=== PATIENT | male | born 1970 | race Caucasian/White ===

== ENCOUNTER 2021-05-18 11:20 | Day surgery (SDC) | payer BC ==
[2021-05-18] MEDS ORDERED: LIDOCAINE HCL 2% 100 MG/5 ML IJ ONE (11:21)
[2021-05-18] MEDS ORDERED: Decadron 4 MG INJ IV ONE (11:21)
[2021-05-18] MEDS ORDERED: DIPRIVAN 200 MG/20 ML IV ONE (12:04)
[2021-05-18] MEDS ORDERED: Lactated Ringers 1,000 ML IV ONE (16:13)
--- NOTE | 2021-05-19 11:20 | XRAY ---
28 seconds fluoroscopy time in surgery for left C2-C4 MBB.
--- NOTE | 2021-05-21 22:46 | XRAY ---
Indication: Left C2-C4 MBB. Intraoperative fluoroscopy was provided for 28 seconds. 2 digital spot images submitted for interpretation demonstrate posterior needle tips projected over the expected left C2-C4 nerve roots. Correlate with intraoperative findings/report.
== END 2021-05-18 12:32 | disposition home or self-care (01) ==
LOC: SDC-PAIN 11:20
PROVIDERS: ATTEND Psychiatry & Neurology Pain Medicine
DX: M47.812 Spondylosis without myelopathy or radiculopathy, cervical region (principal); Z79.899 Other long term (current) drug therapy
CPT/HCPCS: 64490; 64491; 72040; 77002; J1100; J2704

== ENCOUNTER 2021-08-04 15:13 | Emergency (ER) | payer BC ==
[2021-08-04] MEDS ORDERED: Sodium Chloride 0.9% 1000 ML 1,000 ML IV STA ×2 (15:38→17:18)
--- NOTE | 2021-08-04 15:38 | ERPHSYRPT ---
- History of Present Illness Time Seen by Provider: 08/04/21 15:35 Source: patient Patient Subjective Stated Complaint: PT TO ER WITH COMPLAINTS OF HEADACHE/BODY ACHES AND CHILLS X 2 DAYS. PT STATES HE WAS CONCERNED BECAUSE THIS IS HOW HE FELT WHEN HE HAD COVID A YEAR AGO. PT COMPLAINS OF FATIGUE. Triage Nursing Assessment: PT A&OX4. AMBULATORY. SKIN PWD. NO DISTRESS. Physician History: This is a 51-year-old white male who has a history of hypertension, peptic ulcer disease and gastroesophageal reflux disease as well as arthritis and presents with 2-day history of initial chills followed by cough, body aches and headaches. Patient had COVID-19 infection approximately 1 year ago. Mid June 2021 the patient had a booster Covid vaccine dose. Patient denies shortness of breath. He denies chest pain. He has had no nausea vomiting or diarrhea. He has no abdominal pain. Timing/Duration: day(s) (2) Cough Quality/Degree: mild Possible Cause: no prior episodes Modifying Factors: Improves With: coughing Associated Symptoms: chills, cough, muscle aches, sore throat, No shortness of breath Allergies/Adverse Reactions: Penicillins Allergy (Mild, Verified 08/04/21 15:29) Hives Home Medications: Carvedilol 6.25 mg [Coreg 6.25 MG] 1 tab PO DAILY 08/04/21 [History] Diltiazem HCl [Diltiazem 12Hr ER] 1 tab PO DAILY 08/04/21 [History] Omeprazole 40 mg PO BID 08/04/21 [History] Hx Tetanus, Diphtheria Vaccination/Date Given: No Hx Influenza Vaccination/Date Given: No Hx Pneumococcal Vaccination/Date Given: No Immunizations Up to Date: Yes Travel Risk - International Travel Have you traveled outside of the country in past 3 weeks: No - Coronavirus Screening Are you exhibiting any of the following symptoms?: Yes Symptoms: Headaches/Body Aches/Fatigue Close contact with a COVID-19 positive Pt in past 14-21 Days: Yes - Vaccine Status Have you recieved a Covid-19 vaccination: Yes 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 - Vaccination Dates Date of 2cond Vaccination (if applicable): 07/12/2021 - Review of Systems Constitutional: Chills Eyes: No Symptoms Ears, Nose, & Throat: Throat Pain Respiratory: Cough Cardiac: No Symptoms Abdominal/Gastrointestinal: No Symptoms Genitourinary Symptoms: Frequency Musculoskeletal: Arthralgias, Myalgias Skin: No Symptoms Neurological: Headache Psychological: No Symptoms Endocrine: No Symptoms Hematologic/Lymphatic: No Symptoms Immunological/Allergic: No Symptoms All Other Systems: Reviewed and Negative - Past Medical History Pertinent Past Medical History: Yes Cardiac History: Hypertension Musculoskeletal History: Arthritis GI Medical History: Ulcer - Past Surgical History Past Surgical History: Yes Gastrointestinal: Appendectomy - Social History Smoking Status: Never smoker Exposure to second hand smoke: No Drug Use: none Patient Lives Alone: No - Nursing Vital Signs Nursing Vital Signs: Initial Vital Signs Temperature 99.5 F 08/04/21 15:21 Pulse Rate 124 H 08/04/21 15:21 Respiratory Rate 18 08/04/21 15:21 Blood Pressure 154/92 08/04/21 15:21 O2 Sat by Pulse Oximetry 95 08/04/21 15:21 Pain Scale Pain Intensity 6 - Physical Exam General Appearance: no apparent distress, alert, anxiety Eye Exam: PERRL/EOMI, eyes nml inspection Ears, Nose, Throat Exam: normal ENT inspection, moist mucous membranes Neck Exam: normal inspection, non-tender, supple, full range of motion Respiratory Exam: normal breath sounds, chest tenderness, lungs clear, respiratory distress, airway intact Cardiovascular Exam: tachycardia Gastrointestinal/Abdomen Exam: soft, normal bowel sounds, No tenderness Rectal Exam: not done Back Exam: normal inspection, normal range of motion, vertebral tenderness, No CVA tenderness Extremity Exam: normal inspection, normal range of motion, pelvis stable Neurologic Exam: alert, oriented x 3, cooperative, oncology rep specialist II-XII nml as tested, normal mood/affect, nml cerebellar function, nml station & gait, sensation nml Skin Exam: normal color, warm, dry Lymphatic Exam: No adenopathy SpO2 Interpretation: normal SpO2: 95 O2 Delivery: Room Air - Course Nursing assessment & vital signs reviewed: Yes EKG Interpreted by Me: RATE (120), Sinus Tach, NORMAL AXIS, NORMAL INTERVALS, NORMAL QRS, NORMAL ST-T, Other (No acute ischemic changes on today's EKG. When compared to EKG dated 03/25/2017, the new finding is sinus tachycardia.) Ordered Tests: Active Orders 24 hr Category Date Time Status Locket Maker STAT Care 08/04/21 15:39 Active EKG-ER Only STAT Care 08/04/21 15:38 Active IV Insertion STAT Care 08/04/21 15:38 Active Isolation, Initiate & Maintain STAT Care 08/04/21 15:38 Active Pulse Oximetry (ED) STAT Care 08/04/21 15:38 Active CHEST 1 VIEW (PORTABLE) Stat Exams 08/04/21 15:39 Completed CHEST WITH CONTRAST [CT] Stat Exams 08/04/21 17:09 Taken BLOOD CULTURE Stat Lab 08/04/21 15:56 Received CBC W DIFF Stat Lab 08/04/21 15:56 Completed CMP Stat Lab 08/04/21 15:56 Completed CULTURE,URINE Stat Lab 08/04/21 16:09 Received D-DIMER QUANTITATIVE Stat Lab 08/04/21 15:56 Completed Ferritin Stat Lab 08/04/21 15:56 Completed INFLUENZA A+B PORFIRIO Stat Lab 08/04/21 16:10 Completed LDH-LACTATE DEHYDROGENASE Stat Lab 08/04/21 15:56 Completed Lactic Acid Stat Lab 08/04/21 15:58 Completed [place] Screen Stat Lab 08/04/21 15:56 Completed TROPONIN Q3H Lab 08/04/21 15:56 Completed UA W/RFX UR CULTURE Stat Lab 08/04/21 16:09 Completed Medication Summary Discontinued Medications Generic Name Dose Route Start Last Admin Trade Name Freq PRN Reason Stop Dose Admin Hydrocodone Bitart/Acetaminophen 10 ml 08/04/21 15:50 08/04/21 16:00 Hydrocodone/Acetaminophen 5 Ml Udcup PO 08/04/21 15:51 10 ml STAT STA Administration Hydrocodone Bitart/Acetaminophen Confirm 08/04/21 15:59 Hydrocodone/Acetaminophen 5 Ml Udcup Administered 08/04/21 16:00 Dose 10 ml .ROUTE .STK-MED ONE Sodium Chloride 1,000 mls @ 999 mls/hr 08/04/21 15:38 08/04/21 16:56 Sodium Chloride 0.9% 1000 Ml IV 08/04/21 16:38 Infused .Q1H1M STA Infusion Sodium Chloride Confirm 08/04/21 15:45 Sodium Chloride 0.9% 1000 Ml Administered 08/04/21 15:46 Dose 1,000 mls @ ud .ROUTE .STK-MED ONE Levofloxacin/Dextrose 500 mg in 100 mls @ 100 mls/hr 08/04/21 17:08 08/04/21 18:21 Levofloxacin 500mg/100ml D5w IV 08/04/21 18:07 Infused STAT STA Infusion Sodium Chloride 1,000 mls @ 999 mls/hr 08/04/21 17:18 08/04/21 18:22 Sodium Chloride 0.9% 1000 Ml IV 08/04/21 18:18 Infused .Q1H1M STA Infusion Levofloxacin/Dextrose Confirm 08/04/21 17:17 Levofloxacin 500mg/100ml D5w Administered 08/04/21 17:18 Dose 500 mg in 100 mls @ ud IV .STK-Synchronic[employer].co ONE Sodium Chloride Confirm 08/04/21 17:19 Sodium Chloride 0.9% 1000 Ml Administered 08/04/21 17:20 Dose 1,000 mls @ ud .ROUTE .STK-MED ONE Lab/Rad Data: Laboratory Result Diagrams 08/04/21 15:56 08/04/21 15:56 Laboratory Results 08/04/21 08/04/21 08/04/21 Range/Units 16:10 16:10 16:09 WBC (4.0-10.5) K/mm3 RBC (4.1-5.6) M/mm3 Hgb (12.5-18.0) gm/dl Hct (42-50) % MCV (78-100) fl MCH (26-32) pg MCHC (32-36) g/dl RDW (11.5-14.0) % Plt Count (150-450) K/mm3 MPV (7.5-11.0) fl Gran % (36.0-66.0) % Eos # (Auto) (0-0.5) Absolute Lymphs (auto) (1.0-4.6) Absolute Monos (auto) (0.0-1.3) Lymphocytes % (24.0-44.0) % Monocytes % (0.0-12.0) % Eosinophils % (0.00-5.0) % Basophils % (0.0-0.4) % Absolute Granulocytes (1.4-6.9) Basophils # (0-0.4) D-Dimer (215-500) ng/mL Sodium (137-145) mmol/L Potassium (3.5-5.1) mmol/L Chloride (98-107) mmol/L Carbon Dioxide (22-30) mmol/L Anion Gap (5-15) MEQ/L BUN (9-20) mg/dL Creatinine (0.66-1.25) mg/dL Estimated GFR ML/MIN Glucose (74-106) mg/dL Lactic Acid (0.4-2.0) Calcium (8.4-10.2) mg/dL Ferritin (17.9-464) ng/mL Total Bilirubin (0.2-1.3) mg/dL AST (17-59) U/L ALT (0-50) U/L Alkaline Phosphatase (38-126) U/L Lactate Dehydrogenase (120-246) U/L Troponin I (0.000-0.034) ng/mL Serum Total Protein (6.3-8.2) g/dL Albumin (3.5-5.0) g/dL Urine Color YELLOW (YELLOW) Urine Appearance SLIGHTLY CLOUDY (CLEAR) Urine pH 6.0 (5-6) Ur Specific [place] 1.016 (1.005-1.025) Urine Protein 30 (Negative) Urine Ketones TRACE (NEGATIVE) Urine Blood MODERATE (0-5) Ky/ul Urine Nitrite POSITIVE (NEGATIVE) Urine Bilirubin NEGATIVE (NEGATIVE) Urine Urobilinogen 2 (0-1) mg/dL Ur Leukocyte Esterase MODERATE (NEGATIVE) Urine WBC (Auto) 11-15 (0-5) /HPF Urine RBC (Auto) NONE (0-2) /HPF U Epithel Cells (Auto) NONE (FEW) /HPF Urine Bacteria (Auto) MANY (NEGATIVE) /HPF Urine Mucus (Auto) SLIGHT (NEGATIVE) /HPF Urine Culture Reflexed YES (NO) Urine Glucose NEGATIVE (NEGATIVE) mg/dL Monoscreen (Negative) Influenza Type A Ag NEGATIVE (NEGATIVE) Influenza Type B Ag NEGATIVE (NEGATIVE) Group A Strep Antibody NOT DETECTED (NEGATIVE) Slides for Path Review 08/04/21 08/04/21 08/04/21 Range/Units 15:58 15:56 15:56 WBC (4.0-10.5) K/mm3 RBC (4.1-5.6) M/mm3 Hgb (12.5-18.0) gm/dl Hct (42-50) % MCV (78-100) fl MCH (26-32) pg MCHC (32-36) g/dl RDW (11.5-14.0) % Plt Count (150-450) K/mm3 MPV (7.5-11.0) fl Gran % (36.0-66.0) % Eos # (Auto) (0-0.5) Absolute Lymphs (auto) (1.0-4.6) Absolute Monos (auto) (0.0-1.3) Lymphocytes % (24.0-44.0) % Monocytes % (0.0-12.0) % Eosinophils % (0.00-5.0) % Basophils % (0.0-0.4) % Absolute Granulocytes (1.4-6.9) Basophils # (0-0.4) D-Dimer (215-500) ng/mL Sodium (137-145) mmol/L Potassium (3.5-5.1) mmol/L Chloride (98-107) mmol/L Carbon Dioxide (22-30) mmol/L Anion Gap (5-15) MEQ/L BUN (9-20) mg/dL Creatinine (0.66-1.25) mg/dL Estimated GFR ML/MIN Glucose (74-106) mg/dL Lactic Acid 1.3 (0.4-2.0) Calcium (8.4-10.2) mg/dL Ferritin 267 (17.9-464) ng/mL Total Bilirubin (0.2-1.3) mg/dL AST (17-59) U/L ALT (0-50) U/L Alkaline Phosphatase (38-126) U/L Lactate Dehydrogenase (120-246) U/L Troponin I (0.000-0.034) ng/mL Serum Total Protein (6.3-8.2) g/dL Albumin (3.5-5.0) g/dL Urine Color (YELLOW) Urine Appearance (CLEAR) Urine pH (5-6) Ur Specific [place] (1.005-1.025) Urine Protein (Negative) Urine Ketones (NEGATIVE) Urine Blood (0-5) Ky/ul Urine Nitrite (NEGATIVE) Urine Bilirubin (NEGATIVE) Urine Urobilinogen (0-1) mg/dL Ur Leukocyte Esterase (NEGATIVE) Urine WBC (Auto) (0-5) /HPF Urine RBC (Auto) (0-2) /HPF U Epithel Cells (Auto) (FEW) /HPF Urine Bacteria (Auto) (NEGATIVE) /HPF Urine Mucus (Auto) (NEGATIVE) /HPF Urine Culture Reflexed (NO) Urine Glucose (NEGATIVE) mg/dL Monoscreen NEGATIVE (Negative) Influenza Type A Ag (NEGATIVE) Influenza Type B Ag (NEGATIVE) Group A Strep Antibody (NEGATIVE) Slides for Path Review 08/04/21 08/04/21 08/04/21 Range/Units 15:56 15:56 15:56 WBC (4.0-10.5) K/mm3 RBC (4.1-5.6) M/mm3 Hgb (12.5-18.0) gm/dl Hct (42-50) % MCV (78-100) fl MCH (26-32) pg MCHC (32-36) g/dl RDW (11.5-14.0) % Plt Count (150-450) K/mm3 MPV (7.5-11.0) fl Gran % (36.0-66.0) % Eos # (Auto) (0-0.5) Absolute Lymphs (auto) (1.0-4.6) Absolute Monos (auto) (0.0-1.3) Lymphocytes % (24.0-44.0) % Monocytes % (0.0-12.0) % Eosinophils % (0.00-5.0) % Basophils % (0.0-0.4) % Absolute Granulocytes (1.4-6.9) Basophils # (0-0.4) D-Dimer 1710 H* (215-500) ng/mL Sodium 134 L (137-145) mmol/L Potassium 3.9 (3.5-5.1) mmol/L Chloride 101 (98-107) mmol/L Carbon Dioxide 24 (22-30) mmol/L Anion Gap 13.4 (5-15) MEQ/L BUN 14 (9-20) mg/dL Creatinine 0.95 (0.66-1.25) mg/dL Estimated GFR > 60.0 ML/MIN Glucose 113 H (74-106) mg/dL Lactic Acid (0.4-2.0) Calcium 9.9 (8.4-10.2) mg/dL Ferritin (17.9-464) ng/mL Total Bilirubin 0.90 (0.2-1.3) mg/dL AST 30 (17-59) U/L ALT 38 (0-50) U/L Alkaline Phosphatase 113 (38-126) U/L Lactate Dehydrogenase 158 (120-246) U/L Troponin I < 0.012 (0.000-0.034) ng/mL Serum Total Protein 6.3 (6.3-8.2) g/dL Albumin 3.8 (3.5-5.0) g/dL Urine Color (YELLOW) Urine Appearance (CLEAR) Urine pH (5-6) Ur Specific [place] (1.005-1.025) Urine Protein (Negative) Urine Ketones (NEGATIVE) Urine Blood (0-5) Ky/ul Urine Nitrite (NEGATIVE) Urine Bilirubin (NEGATIVE) Urine Urobilinogen (0-1) mg/dL Ur Leukocyte Esterase (NEGATIVE) Urine WBC (Auto) (0-5) /HPF Urine RBC (Auto) (0-2) /HPF U Epithel Cells (Auto) (FEW) /HPF Urine Bacteria (Auto) (NEGATIVE) /HPF Urine Mucus (Auto) (NEGATIVE) /HPF Urine Culture Reflexed (NO) Urine Glucose (NEGATIVE) mg/dL Monoscreen (Negative) Influenza Type A Ag (NEGATIVE) Influenza Type B Ag (NEGATIVE) Group A Strep Antibody (NEGATIVE) Slides for Path Review 08/04/21 Range/Units 15:56 WBC 9.9 (4.0-10.5) K/mm3 RBC 5.29 (4.1-5.6) M/mm3 Hgb 15.3 (12.5-18.0) gm/dl Hct 47.2 (42-50) % MCV 89.2 (78-100) fl MCH 28.9 (26-32) pg MCHC 32.4 (32-36) g/dl RDW 12.5 (11.5-14.0) % Plt Count 189 (150-450) K/mm3 MPV 9.9 (7.5-11.0) fl Gran % 71.5 H (36.0-66.0) % Eos # (Auto) 0.01 (0-0.5) Absolute Lymphs (auto) 1.25 (1.0-4.6) Absolute Monos (auto) 1.55 H (0.0-1.3) Lymphocytes % 12.6 L (24.0-44.0) % Monocytes % 15.6 H (0.0-12.0) % Eosinophils % 0.1 (0.00-5.0) % Basophils % 0.2 (0.0-0.4) % Absolute Granulocytes 7.10 H (1.4-6.9) Basophils # 0.02 (0-0.4) D-Dimer (215-500) ng/mL Sodium (137-145) mmol/L Potassium (3.5-5.1) mmol/L Chloride (98-107) mmol/L Carbon Dioxide (22-30) mmol/L Anion Gap (5-15) MEQ/L BUN (9-20) mg/dL Creatinine (0.66-1.25) mg/dL Estimated GFR ML/MIN Glucose (74-106) mg/dL Lactic Acid (0.4-2.0) Calcium (8.4-10.2) mg/dL Ferritin (17.9-464) ng/mL Total Bilirubin (0.2-1.3) mg/dL AST (17-59) U/L ALT (0-50) U/L Alkaline Phosphatase (38-126) U/L Lactate Dehydrogenase (120-246) U/L Troponin I (0.000-0.034) ng/mL Serum Total Protein (6.3-8.2) g/dL Albumin (3.5-5.0) g/dL Urine Color (YELLOW) Urine Appearance (CLEAR) Urine pH (5-6) Ur Specific [place] (1.005-1.025) Urine Protein (Negative) Urine Ketones (NEGATIVE) Urine Blood (0-5) Ky/ul Urine Nitrite (NEGATIVE) Urine Bilirubin (NEGATIVE) Urine Urobilinogen (0-1) mg/dL Ur Leukocyte Esterase (NEGATIVE) Urine WBC (Auto) (0-5) /HPF Urine RBC (Auto) (0-2) /HPF U Epithel Cells (Auto) (FEW) /HPF Urine Bacteria (Auto) (NEGATIVE) /HPF Urine Mucus (Auto) (NEGATIVE) /HPF Urine Culture Reflexed (NO) Urine Glucose (NEGATIVE) mg/dL Monoscreen (Negative) Influenza Type A Ag (NEGATIVE) Influenza Type B Ag (NEGATIVE) Group A Strep Antibody (NEGATIVE) Slides for Path Review - Progress Progress: improved, re-examined Air Movement: good Progress Note: 08/04/21 18:04 Chest x-ray shows no acute cardiopulmonary process. 08/04/21 18:48 CTA of the chest shows no obvious pulmonary embolism. 1.1 cm right apical spiculated mass. No pulmonary infiltrates present. These were discussed in det ail with the patient. He will follow up with them. Blood Culture(s) Obtained: Yes Antibiotics given: No Counseled pt/family regarding: lab results, diagnosis, need for follow-up, rad results - Departure Departure Disposition: Home Clinical Impression: UTI (urinary tract infection) Condition: Stable Critical Care Time: No Referrals: JIM BEAUCHAMP NP [Primary Care Provider] - Follow up/PCP as directed Instructions: Headache, Adult (DC) Additional Instructions: Drink plenty of fluids. Take your medication as prescribed. Add ibuprofen 600 mg orally with food 3 times a day to help with fever and pain control if there are no contraindications. Follow-up with your primary care physician for persistent symptoms. Follow-up with your primary provider for further evaluation of the 1.1 cm right apical spiculated mass that we discussed with you about. Prescriptions: Hydrocodone/Acetaminophen [Hydrocodone-Acetamn 7.5-325/15] 10 ml PO Q8H PRN PRN #120 ml MDD 30 ml PRN Reason: Cough Ciprofloxacin [Cipro 500 MG] 500 mg PO BID #14 tablet
[2021-08-04] MEDS ORDERED: Sodium Chloride 0.9% 1000 ML 1,000 ML ONE ×2 (15:45→17:19)
[2021-08-04] MEDS ORDERED: HYDROCODONE-ACETAMIN 2.5-108/5 ML SOLUTION PO STA (15:50)
[2021-08-04] MEDS ORDERED: HYDROCODONE-ACETAMIN 2.5-108/5 ML SOLUTION ONE (15:59)
--- NOTE | 2021-08-04 16:35 | XRAY ---
Indication: Cough, chills, and headache. Comparison: None Portable chest demonstrates normal heart and lungs. Bony thorax intact with mild osteopenia and degenerative changes.
[2021-08-04 16:41] LABS: Appearance SLIGHTLY CLOUDY (CLEAR); Bacteria MANY /HPF (NEGATIVE); Bilirubin NEGATIVE (NEGATIVE); Blood MODERATE Ery/ul (0-5); Glucose NEGATIVE (NEGATIVE); Ketones TRACE (NEGATIVE); Leukocyte Esterase MODERATE (NEGATIVE); Mucus SLIGHT /HPF (NEGATIVE); Nitrite POSITIVE (NEGATIVE); Protein,Urine Dip 30 (Negative); Specific Gravity 1.016 (1.005-1.025); Urobilinogen 2 mg/dL (0-1)
[2021-08-04 16:42] LABS: BASOPHIL % 0.2 % (0.0-0.4); Basophil (Absolute #) 0.02 (0-0.4); Eosinophil % 0.1 % (0.00-5.0); Eosinophil (Absolute #) 0.01 (0-0.5); Hematocrit 47.2 % (42-50); Hemoglobin 15.3 gm/dl (12.5-18.0); Lymphocyte (Absolute #) 1.25 (1.0-4.6); Lymphocytes % 12.6 % (24.0-44.0); Mean Cell Volume 89.2 fl (78-100); Mean Corpuscular Hemoglobin 28.9 pg (26-32); Mean Corpuscular Hgb Concent. 32.4 g/dl (32-36); Mean Platelet Volume 9.9 fl (7.5-11.0); Monocyte (Absolute #) 1.55 (0.0-1.3); Monocytes % 15.6 % (0.0-12.0); Neutrophil % 71.5 % (36.0-66.0); Platelet Count 189 K/mm3 (150-450); Red Blood Count 5.29 M/mm3 (4.1-5.6); Red Cell Distribution Width 12.5 % (11.5-14.0); White Blood Count 9.9 K/mm3 (4.0-10.5)
[2021-08-04 16:47] LABS: ALBUMIN 3.8 g/dL (3.5-5.0); ALKALINE PHOSPHATASE 113 U/L (38-126); ANION GAP 13.4 MEQ/L (5-15); BLOOD UREA NITROGEN 14 mg/dL (9-20); CHLORIDE 101 mmol/L (98-107); Calcium 9.9 mg/dL (8.4-10.2); Carbon Dioxide 24 mmol/L (22-30); Creatinine 1 0.95 mg/dL (0.66-1.25); EST GLOMERULAR FILTRATION RATE > 60.0 ML/MIN; Glucose 113 mg/dL (74-106); LDH-LACTATE DEHYDROGENASE 158 U/L (120-246); Potassium 3.9 mmol/L (3.5-5.1); SGOT/AST 30 U/L (17-59); SGPT/ALT 38 U/L (0-50); SODIUM 134 mmol/L (137-145); Total Protein 6.3 g/dL (6.3-8.2)
[2021-08-04 16:57] LABS: INFLUENZA A NEGATIVE (NEGATIVE); INFLUENZA B NEGATIVE (NEGATIVE)
[2021-08-04] MEDS ORDERED: Levofloxacin 500MG/100ML D5W 500 MG/100 ML BAG IV STA (17:08)
[2021-08-04] MEDS ORDERED: Levofloxacin 500MG/100ML D5W 500 MG/100 ML BAG IV ONE (17:17)
[2021-08-04 18:18] VITALS: BP 153/89; PULSE 104
[2021-08-04 18:51] VITALS: O2SAT 95
--- NOTE | 2021-08-05 08:53 | XRAY ---
Indication: Headache, shaking, cough, weakness, and frequent urination. Elevated d-dimer. Multiple contiguous axial images obtained through the chest using 80 cc Isovue 370 contrast and PE protocol. Comparison: None There is suboptimal opacification of the pulmonary arteries limiting evaluation of the more distal lobar and segmental branches. No obvious pulmonary embolus. Heart is not enlarged. Aorta is normal in course and caliber. No pathologic mediastinal/hilar lymphadenopathy. Lungs demonstrates mild bibasilar subsegmental atelectasis/scarring. Medial right upper lobe demonstrates peripheral 1.1 cm spiculated masslike opacity with adjacent pleural thickening. No infiltrate or effusion. Bony thorax demonstrates minimal degenerative changes throughout the spine. Remote appearing T4 and T10 anterior wedging deformities with 25-50% height loss. Limited upper abdomen demonstrates 14.1 cm splenomegaly and 9 mm nonobstructing right renal calculus. Impression: 1. Pulmonary embolus evaluation limited due to suboptimal opacification. No obvious pulmonary embolus. 2. 1.1 cm right upper lobe spiculated masslike opacity with pleural thickening. Malignancy is of primary concern. PET/CT may yield further information. 3. Incidental splenomegaly, nonobstructed right renal calculus, and chronic bony findings.
== END 2021-08-04 18:40 | disposition home or self-care (01) ==
LOC: ED 15:13
DX: N39.0 Urinary tract infection, site not specified (principal); R51.9 Headache, unspecified; M79.10 Myalgia, unspecified site; J02.9 Acute pharyngitis, unspecified; Z86.16 Personal history of COVID-19; I10 Essential (primary) hypertension; Z79.891 Long term (current) use of opiate analgesic
CPT/HCPCS: 36000; 36415; 71045; 71260; 80053; 81001; 82728; 83605; 83615; 84484; 85025; 85379; 86308; 87040; 87077; 87086; 87186; 87400; 87651; 93005; 93041; 94760; 99284; U0003; J1956; A9270-GY

== ENCOUNTER 2021-10-05 14:12 | Day surgery (SDC) | payer BC ==
[2021-10-05] MEDS ORDERED: Depo-Medrol 40 MG/ML IM ONE (14:13)
[2021-10-05] MEDS ORDERED: BUPIVACAINE 0.5% VIAL IJ ONE (14:13)
[2021-10-05] MEDS ORDERED: Xylocaine 1% Vial 30 ML PF IJ ONE (14:13)
--- NOTE | 2021-10-05 19:00 | XRAY ---
34 seconds of fluoroscopy was used in surgery for a right shoulder intra-articular & subacromial bursa injections.
--- NOTE | 2021-10-05 19:10 | XRAY ---
Indication: Right shoulder and subacromial bursa injections. Intraoperative fluoroscopy provided for 34 seconds. 3 digital spot image submitted for interpretation demonstrates needle tip projecting over the right glenohumeral joint superiorly and subacromial. Small amount of contrast injected for both needle tip placement. Correlate with intraoperative findings/report.
== END 2021-10-05 17:55 | disposition home or self-care (01) ==
LOC: SDC-PAIN 14:12
PROVIDERS: ATTEND Psychiatry & Neurology Pain Medicine
DX: M19.011 Primary osteoarthritis, right shoulder (principal); M75.51 Bursitis of right shoulder; I10 Essential (primary) hypertension; Z79.899 Other long term (current) drug therapy
CPT/HCPCS: 20610; 73030; 77002; J1030; J2001; Q9966

== ENCOUNTER 2022-01-04 14:26 | Day surgery (SDC) | payer BC ==
[2022-01-04] MEDS ORDERED: Depo-Medrol 40 MG/ML IM ONE (14:27)
[2022-01-04] MEDS ORDERED: BUPIVACAINE 0.5% VIAL IJ ONE (14:27)
[2022-01-04] MEDS ORDERED: Xylocaine 1% Vial 30 ML PF IJ ONE (14:27)
--- NOTE | 2022-01-04 20:39 | XRAY ---
Indication: Right shoulder injection. Intraoperative fluoroscopy provided for 10 seconds. Single digital spot image submitted for interpretation demonstrates needle tip projecting over the right glenohumeral joint superiorly. Small amount of contrast injected for needle tip placement. Correlate with intraoperative findings/report.
--- NOTE | 2022-01-05 08:55 | XRAY ---
10 seconds fluoroscopy time in surgery for intra-articular injection of the right shoulder.
== END 2022-01-04 18:22 | disposition home or self-care (01) ==
LOC: SDC-PAIN 14:26
PROVIDERS: ATTEND Psychiatry & Neurology Pain Medicine
DX: M19.011 Primary osteoarthritis, right shoulder (principal); I10 Essential (primary) hypertension; Z79.899 Other long term (current) drug therapy
CPT/HCPCS: 20610; 73030; 77002; J1030; J2001; Q9966

== ENCOUNTER 2022-07-26 13:48 | Day surgery (SDC) | payer BC ==
[2022-07-26] MEDS ORDERED: Xylocaine 1% Vial 30 ML PF IJ ONE (13:49)
[2022-07-26] MEDS ORDERED: BUPIVACAINE 0.5% VIAL IJ ONE (13:49)
[2022-07-26] MEDS ORDERED: Depo-Medrol 40 MG/ML IM ONE (13:49)
--- NOTE | 2022-07-26 19:54 | XRAY ---
Indication: Right shoulder injection. Intraoperative fluoroscopy provided for 13 seconds. Single digital spot image submitted for interpretation demonstrates needle tip projecting over the right glenohumeral joint superiorly. Small amount of contrast injected for needle tip placement. Correlate with intraoperative findings/report.
--- NOTE | 2022-07-27 19:54 | XRAY ---
13 seconds of fluoroscopy was used in surgery for a right intra-articular shoulder injection.
== END 2022-07-26 17:35 | disposition home or self-care (01) ==
LOC: SDC-PAIN 13:48
PROVIDERS: ATTEND Psychiatry & Neurology Pain Medicine
DX: M19.011 Primary osteoarthritis, right shoulder (principal); Z79.899 Other long term (current) drug therapy
CPT/HCPCS: 20610; 73030; 77002; J1030; J2001; Q9966

== ENCOUNTER 2024-07-22 10:58 | Emergency (ER) | payer BC ==
[2024-07-22 11:09] VITALS: PULSE 77; TEMP 97.4
[2024-07-22] MEDS ORDERED: Sodium Chloride 0.9% 1000 ML 1,000 ML ONE (11:25)
[2024-07-22] MEDS ORDERED: TORAdol 30 mg Injection ONE (11:25)
[2024-07-22] MEDS: TORAdol 30 mg Injection IV ONE (11:26)
[2024-07-22] MEDS: Sodium Chloride 0.9% 1000 ML 1,000 ML IV STA (11:26)
[2024-07-22 11:42] LABS: Absolute Neutrophil Ct (ANC) 6.56 x10^3/uL (1.78-5.38); BASOPHIL % 0.4 % (0.2-1.2); Basophil (Absolute #) 0.03 x10^3/uL (0.01-0.08); Eosinophil % 0.5 % (0.8-7.0); Eosinophil (Absolute #) 0.04 x10^3/uL (0.04-0.54); Hemoglobin 14.9 g/dL (13.7-17.5); IMMATURE GRAN # 0.03 x10^3u/L (0.001-0.031); IMMATURE GRAN % 0.4 % (0.001-0.429); Lymphocyte (Absolute #) 1.03 x10^3/uL (1.32-3.57); Lymphocytes % 12.2 % (21.8-53.1); Mean Cell Volume 88.5 fL (79.0-92.2); Mean Corpuscular Hgb Concent. 33.9 g/dL (32.3-36.5); Mean Platelet Volume 9.8 fL (9.4-12.4); Monocyte (Absolute #) 0.72 x10^3/uL (0.30-0.82); Monocytes % 8.6 % (5.3-12.2); Neutrophil % 77.9 % (34.0-67.9); Platelet Count 244 x10^3/uL (163-337); Red Blood Count 4.97 x10^6/uL (4.63-6.08); Red Cell Distribution Width 12.1 % (11.6-14.4); White Blood Count 8.4 x10^3/uL (4.23-9.07)
[2024-07-22 11:50] LABS: Appearance Cloudy (Clear); Bacteria None Seen /HPF (None Seen); Bilirubin Negative (Negative); Blood Large (Negative); Epithelial Cells None Seen /HPF (None Seen); Glucose, Urine Negative (Negative); Ketones Trace (Negative); Leukocyte Esterase Moderate (Negative); Nitrite Negative (Negative); Ph 5.5 (4.6-8.0); Protein,Urine Dip 30 (Negative); RBC 51-100 /HPF (0-5); Urobilinogen 0.2 mg/dL (0.2); WBC 21-50 /HPF (0-5)
[2024-07-22 11:56] LABS: ALBUMIN 4.4 g/dL (3.5-5.0); ANION GAP 13.6 MEQ/L (5-15); BILIRUBIN,TOTAL 1.1 mg/dL (0.2-1.3); Calcium 10.8 mg/dL (8.4-10.2); Creatinine 1 1.77 mg/dL (0.66-1.25); EST GLOMERULAR FILTRATION RATE 45.4 ML/MIN; Total Protein 7.1 g/dL (6.3-8.2)
[2024-07-22 12:10] LABS: Amphetamine,Urine NEGATIVE (NEGATIVE); Barbiturate,Urine NEGATIVE (NEGATIVE); Benzodiazepine,Urine NEGATIVE (NEGATIVE); Cocaine,Urine NEGATIVE (NEGATIVE); Methadone,Urine NEGATIVE (NEGATIVE); Opiate,Urine NEGATIVE (NEGATIVE); PCP,Urine NEGATIVE (NEGATIVE); THC,Urine NEGATIVE (NEGATIVE)
--- NOTE | 2024-07-22 12:12 | XRAY ---
Indication: Left flank pain. Multiple contiguous axial images obtained through the abdomen and pelvis without contrast using renal stone protocol. Comparison: None Lung bases demonstrates minimal dependent atelectasis and small right base bleb. No infiltrate or effusion. Heart not enlarged. 6 mm proximal left ureteral calculus, approximately L3 level. Also 6 mm right mid ureteral calculus, approximately L5 level. Moderate right and mild left hydronephrosis consistent with obstructive uropathy. Additional 1 cm right renal and a few left renal punctate calculi. No free fluid/air. Noncontrasted stomach and bowel loops appear nonobstructed. Previous appendectomy. Remaining liver, gallbladder, pancreas, spleen, adrenal glands, and bladder are unremarkable for noncontrast exam. Minimal aortic calcifications without AAA. Osseous structures intact with mild degenerative changes throughout thoracolumbar spine, minimal dextroscoliosis centered at L2, and mild bilateral hip degenerative arthropathy. Impression: 1. 6 mm proximal left and 6 mm mid right ureteral calculi producing partial obstruction as detailed. Additional bilateral renal calculi. 2. Chronic findings including arteriosclerotic disease and chronic bony findings.
[2024-07-22] MEDS ORDERED: Levofloxacin 500MG/100ML D5W 500 MG/100 ML BAG IV ONE (13:05)
[2024-07-22] MEDS: Levofloxacin 500MG/100ML D5W 500 MG/100 ML BAG IV STA (13:07)
--- NOTE | 2024-07-22 13:26 | ERPHSYRPT ---
- History of Present Illness Time Seen by Provider: 07/22/24 11:10 Source: patient Exam Limitations: no limitations Patient Subjective Stated Complaint: Pt c/o of left sided flank pain that radiates around to his abdomen, pt is going Sunday for removal of a right kidney stone Triage Nursing Assessment: Pt brought self to the ER, hypertensive, rates pain as 8/10, nausea, denies vomiting, pain to left flank that radiates to the left abdomen, pulses normal, skin n/w/d, no difficulty with breathing, doesn't appear to be in any distress Physician History: Patient is a 54-year-old male history of kidney stones presents to our emergency department for evaluation of left-sided flank pain that started this morning. Patient advises that he currently has a right sided obstructing kidney stone that is scheduled to be decompressed next week on Sunday by urologist Dr. Pugh. No trauma no fever. Patient states that he noticed blood in his urine. Symptoms are moderate in intensity. No specific worsening or improving factors. Symptoms are similar to his previous history of kidney stones. Patient otherwise feels well. He voices no other complaints or concerns at this time. Portions of this note were created with voice recognition technology. There may be grammatical, spelling, punctuation or sound alike errors Timing/Duration: today Severity: moderate Modifying Factors: Improves With: nothing Associated Symptoms: denies symptoms Allergies/Adverse Reactions: Penicillins Allergy (Mild, Verified 07/22/24 11:09) Hives Home Medications: Carvedilol [Coreg ] 6.25 mg PO DAILY 08/04/21 [History] Omeprazole 40 mg PO BID 08/04/21 [History] dilTIAZem HCL [Diltiazem 12Hr ER] 240 mg PO DAILY 08/04/21 [History] Celecoxib 200 mg PO BID 07/22/24 [History] Docusate Sodium [Stool Softener] 100 mg PO DAILY 07/22/24 [History] Famotidine 40 mg PO BID 07/22/24 [History] Linaclotide [Linzess] 290 mcg PO DAILY 07/22/24 [History] Solriamfetol HCl [Sunosi] 150 mg PO DAILY 07/22/24 [History] Tamsulosin HCl 0.4 mg [Flomax 0.4 MG] 0.4 mg PO DAILY 07/22/24 [History] Teriparatide 2.48 ml SQ HS 07/22/24 [History] Hx Tetanus, Diphtheria Vaccination/Date Given: No Hx Influenza Vaccination/Date Given: No Hx Pneumococcal Vaccination/Date Given: No Travel Risk - International Travel Have you traveled outside of the country in past 3 weeks: No - Emerging Infectious Disease Are you exhibiting symptoms associated with any current EIDs: Yes Symptoms: Abdominal Pain - Review of Systems Constitutional: No Symptoms, No Fever, No Chills Eyes: No Symptoms Ears, Nose, & Throat: No Symptoms Respiratory: No Symptoms, No Cough, No Dyspnea Cardiac: No Symptoms, No Chest Pain, No Edema, No Syncope Abdominal/Gastrointestinal: No Symptoms, No Abdominal Pain, No Nausea, No Vomiting, No Diarrhea Genitourinary Symptoms: No Symptoms, No Dysuria Musculoskeletal: No Symptoms, No Back Pain, No Neck Pain Skin: No Symptoms, No Rash Neurological: No Symptoms, No Dizziness, No Focal Weakness, No Sensory Changes Psychological: No Symptoms Endocrine: No Symptoms Hematologic/Lymphatic: No Symptoms Immunological/Allergic: No Symptoms All Other Systems: Reviewed and Negative - Past Medical History Pertinent Past Medical History: Yes Cardiac History: Hypertension Musculoskeletal History: Arthritis GI Medical History: Ulcer - Past Surgical History Past Surgical History: Yes Gastrointestinal: Appendectomy - Social History Smoking Status: Never smoker Exposure to second hand smoke: No Drug Use: none Patient Lives Alone: No - Social Determinants of Health Will the patient participate in the screening: Yes Do you worry about a steady place to live?: No Do you have any problems with any of the following?: No known problems In the past 12 months,have you had to go without utilities?: No Transportation Issues: No Has anyone in your support network made you feel unsafe?: No Have you or anyone in your house had to go without enough: No - Nursing Vital Signs Nursing Vital Signs: Initial Vital Signs Temperature 97.4 F 07/22/24 11:02 Pulse Rate 77 07/22/24 11:02 Blood Pressure 164/83 07/22/24 11:02 O2 Sat by Pulse Oximetry 98 07/22/24 11:02 Pain Scale Pain Intensity 8 - Physical Exam General Appearance: no apparent distress, alert Eye Exam: PERRL/EOMI, eyes nml inspection Ears, Nose, Throat Exam: normal ENT inspection, TMs normal, pharynx normal, moist mucous membranes Neck Exam: normal inspection, non-tender, supple, full range of motion Respiratory Exam: normal breath sounds, lungs clear, No respiratory distress Cardiovascular Exam: regular rate/rhythm, normal heart sounds, normal peripheral pulses Gastrointestinal/Abdomen Exam: soft, normal bowel sounds, other (Left CVA tenderness), No tenderness, No mass Back Exam: normal inspection, normal range of motion, No CVA tenderness, No vertebral tenderness Extremity Exam: normal inspection, normal range of motion, pelvis stable Neurologic Exam: alert, oriented x 3, cooperative, normal mood/affect, sensation nml, No motor deficits Skin Exam: normal color, warm, dry, No rash Lymphatic Exam: No adenopathy SpO2 Interpretation: normal SpO2: 99 O2 Delivery: Room Air - Course Nursing assessment & vital signs reviewed: Yes - CT Exams Abdomen/Pelvis CT Interpretation: Tele-radiologist Report (Bilateral ureterolithiasis with bilateral hydronephrosis bilateral nephrolithiasis) Ordered Tests: Active Orders 24 hr Category Date Time Status Clean Catch Urine Specimen STAT Care 07/22/24 11:19 Active IV Insertion STAT Care 07/22/24 11:19 Active ABDOMEN AND PELVIS W/0 CONTRAS [CT] Stat Exams 07/22/24 11:20 Completed CBC W DIFF Stat Lab 07/22/24 11:35 Completed CMP Stat Lab 07/22/24 11:41 Completed CULTURE,URINE Stat Lab 07/22/24 11:21 Received LIPASE Stat Lab 07/22/24 11:41 Completed UA W/RFX UR CULTURE Stat Lab 07/22/24 11:21 Completed Urine Triage Profile Stat Lab 07/22/24 11:21 Completed Medication Summary Discontinued Medications Generic Name Dose Route Start Last Admin Trade Name Jaredq PRN Reason Stop Dose Admin Sodium Chloride 1,000 mls @ 999 mls/hr 07/22/24 11:19 07/22/24 12:27 Sodium Chloride 0.9% 1000 Ml IV 07/22/24 12:19 Infused .Q1H1M STA Infusion Sodium Chloride Confirm 07/22/24 11:25 Sodium Chloride 0.9% 1000 Ml Administered 07/22/24 11:26 Dose 1,000 mls @ ud .ROUTE .STK-MED ONE Levofloxacin/Dextrose 500 mg in 100 mls @ 100 mls/hr 07/22/24 13:03 07/22/24 14:10 Levofloxacin 500mg/100ml D5w IV 07/22/24 14:02 Infused STAT STA Infusion Levofloxacin/Dextrose Confirm 07/22/24 13:05 Levofloxacin 500mg/100ml D5w Administered 07/22/24 13:06 Dose 500 mg in 100 mls @ ud IV .STK-MED ONE Ketorolac Tromethamine 30 mg 07/22/24 11:19 07/22/24 11:26 Ketorolac Tromethamine 30 Mg/Ml Inj IV 07/22/24 11:20 30 mg STAT ONE Administration Ketorolac Tromethamine Confirm 07/22/24 11:25 Ketorolac Tromethamine 30 Mg/Ml Inj Administered 07/22/24 11:26 Dose 30 mg .ROUTE .K-MED ONE Lab/Rad Data: Laboratory Result Diagrams 07/22/24 11:35 07/22/24 11:41 Laboratory Results 07/22/24 07/22/24 07/22/24 Range/Units 11:41 11:35 11:21 WBC 8.4 (4.23-9.07) x10^3/uL RBC 4.97 (4.63-6.08) x10^6/uL Hgb 14.9 (13.7-17.5) g/dL Hct 44.0 (40.1-51.0) % MCV 88.5 (79.0-92.2) fL MCH 30.0 (25.7-32.2) pg MCHC 33.9 (32.3-36.5) g/dL RDW 12.1 (11.6-14.4) % Plt Count 244 (163-337) x10^3/uL MPV 9.8 (9.4-12.4) fL Gran % 77.9 H (34.0-67.9) % Immature Gran % (Auto) 0.4 (0.001-0.429) % Nucleat RBC Rel Count 0.0 (0.00-0.2) % Eos # (Auto) 0.04 (0.04-0.54) x10^3/uL Immature Gran # (Auto) 0.03 (0.001-0.031) x10^3u/L Absolute Lymphs (auto) 1.03 L (1.32-3.57) x10^3/uL Absolute Monos (auto) 0.72 (0.30-0.82) x10^3/uL Absolute Nucleated RBC 0.00 (0.00-0.012) x10^3u/L Lymphocytes % 12.2 L (21.8-53.1) % Monocytes % 8.6 (5.3-12.2) % Eosinophils % 0.5 L (0.8-7.0) % Basophils % 0.4 (0.2-1.2) % Absolute Granulocytes 6.56 H (1.78-5.38) x10^3/uL Basophils # 0.03 (0.01-0.08) x10^3/uL Sodium 141 (135-145) mmol/L Potassium 4.0 (3.5-5.1) mmol/L Chloride 108 H (98-107) mmol/L Carbon Dioxide 23 (22-30) mmol/L Anion Gap 13.6 (5-15) MEQ/L BUN 22 H (9-20) mg/dL Creatinine 1.77 H (0.66-1.25) mg/dL Estimated GFR 45.4 ML/MIN Glucose 115 H (74-106) mg/dL Calcium 10.8 H (8.4-10.2) mg/dL Total Bilirubin 1.10 (0.2-1.3) mg/dL AST 22 (17-59) U/L ALT 21 (0-50) U/L Alkaline Phosphatase 94 (38-126) U/L Serum Total Protein 7.1 (6.3-8.2) g/dL Albumin 4.4 (3.5-5.0) g/dL Lipase 29 (23-300) U/L Urine Color (Yellow) Urine Appearance (Clear) Urine pH (4.6-8.0) Ur Specific [place] (1.005-1.030) Urine Protein (Negative) Urine Glucose (UA) (Negative) mg/dL Urine Ketones (Negative) Urine Blood (Negative) Urine Nitrite (Negative) Urine Bilirubin (Negative) Urine Urobilinogen (0.2) mg/dL Ur Leukocyte Esterase (Negative) U Hyaline Cast (Auto) (0-2) /LPF Urine Microscopic RBC (0-5) /HPF Urine Microscopic WBC (0-5) /HPF Ur Epithelial Cells (None Seen) /HPF Urine Bacteria (None Seen) /HPF Urine Culture Reflexed (NO) Urine Opiates Level NEGATIVE (NEGATIVE) Ur Methadone NEGATIVE (NEGATIVE) Urine Barbiturates NEGATIVE (NEGATIVE) Ur Phencyclidine (PCP) NEGATIVE (NEGATIVE) Urine Amphetamine NEGATIVE (NEGATIVE) U Benzodiazepine Level NEGATIVE (NEGATIVE) Urine Cocaine NEGATIVE (NEGATIVE) Urine Marijuana (THC) NEGATIVE (NEGATIVE) 07/22/24 Range/Units 11:21 WBC (4.23-9.07) x10^3/uL RBC (4.63-6.08) x10^6/uL Hgb (13.7-17.5) g/dL Hct (40.1-51.0) % MCV (79.0-92.2) fL MCH (25.7-32.2) pg MCHC (32.3-36.5) g/dL RDW (11.6-14.4) % Plt Count (163-337) x10^3/uL MPV (9.4-12.4) fL Gran % (34.0-67.9) % Immature Gran % (Auto) (0.001-0.429) % Nucleat RBC Rel Count (0.00-0.2) % Eos # (Auto) (0.04-0.54) x10^3/uL Immature Gran # (Auto) (0.001-0.031) x10^3u/L Absolute Lymphs (auto) (1.32-3.57) x10^3/uL Absolute Monos (auto) (0.30-0.82) x10^3/uL Absolute Nucleated RBC (0.00-0.012) x10^3u/L Lymphocytes % (21.8-53.1) % Monocytes % (5.3-12.2) % Eosinophils % (0.8-7.0) % Basophils % (0.2-1.2) % Absolute Granulocytes (1.78-5.38) x10^3/uL Basophils # (0.01-0.08) x10^3/uL Sodium (135-145) mmol/L Potassium (3.5-5.1) mmol/L Chloride (98-107) mmol/L Carbon Dioxide (22-30) mmol/L Anion Gap (5-15) MEQ/L BUN (9-20) mg/dL Creatinine (0.66-1.25) mg/dL Estimated GFR ML/MIN Glucose (74-106) mg/dL Calcium (8.4-10.2) mg/dL Total Bilirubin (0.2-1.3) mg/dL AST (17-59) U/L ALT (0-50) U/L Alkaline Phosphatase (38-126) U/L Serum Total Protein (6.3-8.2) g/dL Albumin (3.5-5.0) g/dL Lipase (23-300) U/L Urine Color Yellow (Yellow) Urine Appearance Cloudy A (Clear) Urine pH 5.5 (4.6-8.0) Ur Specific [place] 1.020 (1.005-1.030) Urine Protein 30 (Negative) Urine Glucose (UA) Negative (Negative) mg/dL Urine Ketones Trace A (Negative) Urine Blood Large A (Negative) Urine Nitrite Negative (Negative) Urine Bilirubin Negative (Negative) Urine Urobilinogen 0.2 (0.2) mg/dL Ur Leukocyte Esterase Moderate A (Negative) U Hyaline Cast (Auto) 3-5 A (0-2) /LPF Urine Microscopic RBC 51-100 A (0-5) /HPF Urine Microscopic WBC 21-50 A (0-5) /HPF Ur Epithelial Cells None Seen (None Seen) /HPF Urine Bacteria None Seen (None Seen) /HPF Urine Culture Reflexed YES (NO) Urine Opiates Level (NEGATIVE) Ur Methadone (NEGATIVE) Urine Barbiturates (NEGATIVE) Ur Phencyclidine (PCP) (NEGATIVE) Urine Amphetamine (NEGATIVE) U Benzodiazepine Level (NEGATIVE) Urine Cocaine (NEGATIVE) Urine Marijuana (THC) (NEGATIVE) - Progress Progress: improved Progress Note: I spoke to Dr. Pugh who advises transferring patient to [facility] admit to hospitalist and he will do surgery in the morning to decompress both ureters. I spoke to Dr. Pugh at 1:20 PM. Patient is a 54-year-old male presents to our ED for evaluation of left-sided flank pain. Patient advises that he has a history of kidney stones. The left- sided flank pain radiates to his left groin area. Patient advises that he currently has an obstructing 6 mm kidney stone on the right and is currently scheduled for removal of this kidney stone next week on Sunday. CAT scan reveals bilateral obstructive uropathy. Both causing hydronephrosis. UA reveals a urinary tract infection with pyuria. No systemic manifestations of UTI. Creatinine elevated at 1.77. This is a significant jump from his previous normal creatinine. Patient will require urgent decompression of both ureters. Plan of care discussed with patient. He agrees to transfer to [facility] for further evaluation and treatment. Antibiotic infused. Pain well- controlled. Vital stable. Patient voices no other complaints or concerns at this time. Complexity problem addressed is moderate acute complicated no critical care time. Complex of data reviewed analyzes extensive. Test ordered chest reviewed results analyzed and correlated clinically with history and physical exam. Risk of complication and or risk of morbidity/mortality of patient management is high. Patient requires transfer to higher level of care/hospitalization. Vital stable. Time spent to transfer patient is approximately 20 minutes. Plan of care established for shared decision making. No social determinants of health present to impede follow-up. Portions of this note were created with voice recognition technology. There may be grammatical, spelling, punctuation or sound alike errors Patient accepted by hospitalist, at approximately 2 PM. 07/22/24 13:[address] himself. Patient will drive himself directly to [facility] ED for admission 07/22/24 14:18 Counseled pt/family regarding: lab results, diagnosis, rad results - Departure Departure Disposition: Transfer Clinical Impression: Acute renal injury, Urinary tract infection, Bilateral ureteral lithiasis, Bilateral nephrolithiasis, Bilateral hydronephrosis, Renal colic Condition: Stable Critical Care Time: No Referrals: JIM BEAUCHAMP NP [Primary Care Provider] - Follow up/PCP as directed Additional Instructions: Discharge/Care Plan GUILLERMODEBBIE PATEL was seen on 07/22/24 in the Emergency Room. The patient was counseled regarding Diagnosis,Lab results, Imaging studies, need for follow up and when to return to the Emergency Room. Prescriptions given: Discharge Note I have spoken with the patient and/or caregivers. I have explained the patient's condition, diagnosis and treatment plan based on the information available to me at this time. I have answered the patient's and/or caregiver's questions and addressed any concerns. The patient and/or caregivers have as good understanding of the patient's diagnosis, condition and treatment plan as can be expected at this point. The vital signs have been stable. The patient's condition is stable and appropriate for discharge from the emergency department. The patient will pursue further outpatient evaluation with the primary care physician or other designated or consulting physician as outlined in the discharge instructions. The patient and/or caregivers are agreeable to this plan of care and follow-up instructions have been explained in detail. The patient and/or caregivers have received these instruction. The patient/and or caregivers are aware that any significant change in condition or worsening of symptoms should prompt an immediate return to this or the closest emergency department or call 911.
[2024-07-22 14:14] VITALS: BP 163/86
[2024-07-22 14:20] VITALS: O2SAT 99
== END 2024-07-22 14:18 | disposition short-term general hospital (02) ==
LOC: ED 10:58
DX: N13.2 Hydronephrosis with renal and ureteral calculous obstruction (principal); N17.9 Acute kidney failure, unspecified; N39.0 Urinary tract infection, site not specified; N23 Unspecified renal colic; I10 Essential (primary) hypertension; Z79.899 Other long term (current) drug therapy; Z87.442 Personal history of urinary calculi
CPT/HCPCS: 36415; 74176; 80053; 80307; 81001; 83690; 85025; 87086; 96365; 96374; 99285; J1885; J1956